=== PATIENT | male | born 1990 | race Caucasian/White ===

== ENCOUNTER → 2017-11-17 | Outpatient (CLI) | payer OTHER ==
[~2017-11-17] MED LIST: AC325T PO; ANTIDEPRESSANT PO; DOXY100C2 PO; FAMO-119 PO; IBUP800T26 PO; LORA2TAB PO; ONDA8TAB13 PO; ONDA8TAB9 PO; TRAM-21 PO; TRAZ150T72 PO
--- NOTE | 2017-11-17 10:08 | Diagnostic Imaging Report ---
PA and lateral chest 826 hours. INDICATION: Cough, congestion. No prior studies available for comparison. FINDINGS: The heart size is within normal limits. The lungs are clear. There is no evidence for pneumonia or for pleural effusion. The mediastinum is not widened. The osseous structures are intact. IMPRESSION: There is no evidence for an acute cardiopulmonary abnormality. Dictated by: Dictated on workstation # [id number]
== END ==
LOC: RAD 07:59
PROVIDERS: ATTEND Nurse Practitioner Family
DX: R05 Cough (principal); R09.89 Other specified symptoms and signs involving the circulatory and respiratory systems
CPT/HCPCS: 71046

== ENCOUNTER 2020-08-04 12:55 | Outpatient (RCR) | payer MEDICAID | END 2020-11-02 | disposition home or self-care (01) | LOC: LAB 12:55 | PROVIDERS: ATTEND Urology | DX: Z95.828 Presence of other vascular implants and grafts (principal) | CPT/HCPCS: 89321 ==